=== PATIENT | male | born 1965 | race Caucasian/White ===

== ENCOUNTER → 2019-09-04 | Emergency (ER) | payer OTHER ==
[~2019-09-04] MED LIST: Adacel (T-DAP) 0.5 ML SYRINGE ONE; Bacitracin 1 PK ONE; Lidocaine 1% w/Epinephrine 1:100K 30 ML VIAL ONE
== END ==
LOC: NAV ERS 13:53
DX: S01.01XA Laceration without foreign body of scalp, initial encounter (principal); Z23 Encounter for immunization; K21.9 Gastro-esophageal reflux disease without esophagitis; E78.5 Hyperlipidemia, unspecified; I11.0 Hypertensive heart disease with heart failure; M10.9 Gout, unspecified; Z79.899 Other long term (current) drug therapy; W22.8XXA Striking against or struck by other objects, initial encounter
CPT/HCPCS: 12002; 90471; 90715; J2001